=== PATIENT | female | born 1960 | race Caucasian/White ===

== ENCOUNTER 2018-06-28 15:14 | Emergency (ER) | payer OTHER ==
[2018-06-28 15:28] VITALS: BP 166/88; PULSE 86; TEMP 97.7; BMI 22.2
--- NOTE | 2018-06-28 15:44 | PDOC ---
History of Present Illness - General Chief Complaint: Lightheaded Stated Complaint: DIZZINESS - History of Present Illness Initial Comments: The pt is a 58F w/ no reported PMH who presents for evaluation of tingling of her upper torso and lower face for approximately 1 hours which has been improving. She notes that this morning at 0900 she was feeling anxious/jittery. She has spent the day at home and while on the couch she noticed that she began to feel the tingling sensation of her b/l upper torso/neck and b/l lower face. She also initially noted L hand weakness which has since resolved. She denies PATEL, vision changes, chest pain, SOB, N/V/C/D, abdominal pain. She reports feeling similar symptoms years ago with high blood pressure. So she took one dose of HCTZ 12.5mg at 1200. It is from an old Rx that her PCP told her to stop taking as her HTN had resolved after losing 50lbs. 06/28/18 16:11 Past History - Past Medical History Allergies/Adverse Reactions: Allergies Allergy/AdvReac Type Severity Reaction Status Date / Time No Known Allergies Allergy Verified 06/28/18 15:28 Home Medications: Ambulatory Orders Hydrochlorothiazide 12.5 mg PO DAILY 06/28/18 Asthma: Yes COPD: No HTN: Yes - Suicide/Smoking/Psychosocial Hx Smoking History: Never smoked Hx Alcohol Use: Yes (WITH DINNER) Drug/Substance Use Hx: No Review of Systems - Review of Systems Able to Perform ROS?: Yes Comments:: GENERAL/CONSTITUTIONAL: No fever or chills HEAD, EYES, EARS, NOSE AND THROAT: No change in vision. No sore throat CARDIOVASCULAR: No chest pain or shortness of breath RESPIRATORY: Denies cough, hemoptysis GASTROINTESTINAL: No nausea, vomiting, diarrhea or constipation GENITOURINARY: No dysuria, frequency, or change in urination MUSCULOSKELETAL: No joint or muscle swelling or pain. No neck or back pain SKIN: No rash_ NEUROLOGIC: No headache, vertigo, loss of consciousness, or change in strength/ sensation._ ENDOCRINE: No increased thirst. No abnormal weight change_ HEMATOLOGIC/LYMPHATIC: No anemia, easy bleeding, or history of blood clots._ ALLERGIC/IMMUNOLOGIC: No hives or skin allergy._ 06/28/18 15:43 06/28/18 16:14 Is the patient limited [place] proficient: No *Physical Exam - Vital Signs Last Vital Signs Temp Pulse Resp BP Pulse Ox 97.7 F 86 22 H 166/88 100 06/28/18 15:24 06/28/18 15:24 06/28/18 15:24 06/28/18 15:24 06/28/18 15:24 - Physical Exam Comments: GENERAL: Awake, alert, and oriented to person/place/time, in no acute distress HEAD: No signs of trauma, normocephalic, atraumatic EYES: PERRLA, EOMI, sclera anicteric, conjunctiva clear ENT: Hearing grossly normal, nares patent, oropharynx clear without exudates. Moist mucosa LUNGS: No distress, speaks full sentences, clear to auscultation bilaterally HEART: Regular rate and rhythm, normal S1 and S2, no murmurs appreciated, peripheral pulses normal and equal bilaterally ABDOMEN: Soft, nontender, normoactive bowel sounds. No guarding, no rebound EXTREMITIES: Normal inspection, Normal range of motion, no edema. No clubbing or cyanosis NEUROLOGICAL: Cranial nerves II through XII grossly intact. Normal speech, no focal sensorimotor deficits SKIN: Warm, Dry 06/28/18 15:43 Moderate Sedation - Procedure Monitoring Vital Signs: Procedure Monitoring Vital Signs Temperature 97.7 F 06/28/18 15:24 Pulse Rate 86 06/28/18 15:24 Respiratory Rate 22 H 06/28/18 15:24 Blood Pressure 166/88 06/28/18 15:24 O2 Sat by Pulse Oximetry (%) 100 06/28/18 15:24 Medical Decision Making - Medical Decision Making The pt is a 58F w/ no current reported medical problems who presents for evaluation of 1 hour of b/l upper torso/neck/lower face tingling. ED Course Plan for CBC, CMP, and Trop I to evaluate for anemia, lyte abn, or evidence of NM. At this time the patient reports that her symptoms are improving and is able to follow up with her PMD on Saturday and does not with to undergo lab work at this time. She does not like having labs drawn and reports having normal labs obtained with her PMD two months ago. I spoke with her regarding what we would be evaluating for and she verbalized understanding. Given the pt's history and distribution of symptoms, I have a low suspicion for stroke. ECG w/o evidence of acute ischemia She denies any new medications or exposures Pt also reports that just prior to episode she was taking deep/rapid breaths Plan for D/C w/ PCP f/u Discharge instructions and return precautions given Pt in agreement and verbalized understanding Dispo: home 06/28/18 16:26 *DC/Admit/Observation/Transfer Diagnosis at time of Disposition: Paresthesia - Discharge Dispostion Disposition: HOME Condition at time of disposition: Improved Decision to Admit order: No - Referrals Referrals: PMD, pt's [Other] - Patient Instructions Printed Discharge Instructions: DI for Numbness/tingling Additional Instructions: You were seen in the Emergency Department for evaluation of tingling. Please follow up with your primary care provider on Saturday. Return to the Emergency Department if you develop fevers/chills, headache, vision changes, chest pain, shortness of breath, vomiting, or any new/concerning symptoms. - Post Discharge Activity
--- NOTE | 2018-06-28 15:55 | PDOC ---
Attending Attestation - Resident Resident Name: Lonny Jenkins - ED Attending Attestation I have performed the following: I have examined & evaluated the patient, The case was reviewed & discussed with the resident, I agree w/resident's findings & plan, Exceptions are as noted - HPI HPI: 06/28/18 16:14 58y F hx of htn (was taken off meds), presents with feeling jittery feeling and feeling of parasthiasias that has since resolved. The patient states that she was feeling well the last couple of days, she was on the train when she started feeling very jittery. She did not have any other associated symptoms including chest pain, shortness of breath, vertigo, vision changes, focal numbness, tingling, weakness, palpitations, nausea, vomiting, diaphoresis. She decided not to go to her trip she ended up going home and was otherwise feeling okay, she remembers laying down and taking deep breaths when she she started to feel tingling in her upper torso, as well as her cheeks and neck, and in a sleevelike distribution on her arms - it seems to spare her forehead as well as her abdomen and forearms and hands. The symptoms lasted for approximately 30 minutes and then resolved. Patient is currently asymptomatic. The patient denies any other recent symptoms including diarrhea, melena, BPR, fever, chills , cough, headache. GENERAL: The patient is awake, alert, and fully oriented, Nontoxic - in no acute distress. HEAD: Normocephalic, atraumatic. EYES: extraocular movements intact, sclera anicteric, conjunctiva clear. ENT: Normal voice, Moist mucous membranes. NECK: Normal range of motion, supple LUNGS: Breath sounds equal, clear to auscultation bilaterally. No wheezes, no rhonchi, no rales. HEART: Regular rate and rhythm, normal S1 and S2 without murmur, rub or gallop. ABDOMEN: Soft, nontender, No guarding, no rebound. . No CVA tenderness EXTREMITIES: Normal range of motion, no edema. NEUROLOGICAL: No facial assymetry, Normal speech, moves all 4 extremities spontaneously and symmetrically, sensation. symmetrically intact PSYCH: Normal mood, normal affect. SKIN: Warm, Dry, normal turgor, I suspect that the patient's symptoms may be secondary to hyperventilation. The distribution of the patient's symptoms do not suggest a neurologic origin. EKG was obtained which did not reveal any type of arrhythmia. We recommended blood work to screen for anemia, metabolic derangements, however the patient refuses states that she will see her primary care doctor on Saturday. Patient states she did have blood work performed by her primary care doctor 2 months ago which were normal. We'll discharge with PMD follow-up with strict return precautions - Physicial Exam PE: 06/28/18 17:50 see above - Medical Decision Making 06/28/18 17:50 see above
--- NOTE | 2018-06-29 11:10 | EKG ---
Test Reason : Blood Pressure : / mmHG Vent. Rate : 084 BPM Atrial Rate : 084 BPM P-R Int : 112 ms QRS Dur : 090 ms QT Int : 384 ms P-R-T Axes : 058 074 054 degrees QTc Int : 453 ms NORMAL SINUS RHYTHM NORMAL ECG NO PREVIOUS ECGS AVAILABLE Confirmed by MD STACI, SHAHEED ([id number]) on 06/29/2018 11:10:42 AM Referred By: Confirmed By:SHAHEED SMALL MD
== END 2018-06-28 17:10 | disposition home or self-care (01) ==
LOC: JER 15:14
DX: R20.2 Paresthesia of skin (principal); I10 Essential (primary) hypertension; Z87.09 Personal history of other diseases of the respiratory system
CPT/HCPCS: 93005; 93010; 99281-25

== ENCOUNTER 2018-12-29 09:05 | Emergency (ER) | payer OTHER | END 2018-12-29 11:45 | disposition home or self-care (01) | LOC: FER 09:05 ==

== ENCOUNTER 2021-05-04 19:23 | Emergency (ER) | payer OTHER ==
[2021-05-04 19:39] VITALS: BP 172/96; PULSE 69; TEMP 99; BMI 25.8
[2021-05-04] MEDS ORDERED: LOSARTAN POTASSIUM 50 MG TABLET PO ONE (19:53)
[2021-05-04] MEDS ORDERED: LOSARTAN POTASSIUM 50 MG TABLET ONE (19:56)
== END 2021-05-04 20:03 | disposition home or self-care (01) ==
LOC: FER 19:23
DX: I10 Essential (primary) hypertension (principal)
CPT/HCPCS: 99283-25